=== PATIENT | female | born 1955 | race Caucasian/White ===

== ENCOUNTER 2024-08-21 18:45 | Observation (INO) | payer BC, MEDICARE ==
[~2024-08-21] VITALS: Ht 165.1 cm; Wt 95.8 kg
[~2024-08-21 18:45] MED LIST: CELEBREX 200MG200 MG PO; HCTZ 25MG TAB25 MG PO; NO CURRENT MEDICATIO; NO HOME MEDICATIONS; PRAVACHOL 20MG20 MG PO; STOOL SOFTENER100 M2 PO; ULTRAM 50MG TAB50 MG PO
[2024-08-21 18:59] VITALS: BP 129/73; PULSE 87; TEMP 99.9
[2024-08-21] MEDS ORDERED: PRAVACHOL 40MG40 MG PO (19:16)
[2024-08-21] MEDS ORDERED: TYLENOL 8 HR PO (19:18)
[2024-08-21 20:00] VITALS: BP_SYST 129
[2024-08-21] MEDS ORDERED: LR 1,000 ML IV SCH (20:00)
[2024-08-21] MEDS ORDERED: Ondansetron 4 MG/2 ML VIAL IV PRN (20:00)
[2024-08-21] MEDS ORDERED: HYDROmorphone 0.5 MG/0.5 ML SYRINGE IV PRN (20:00)
[2024-08-21 21:34] VITALS: BP 129/73
--- NOTE | 2024-08-21 23:33 | NUR ---
Patient direct admit to hospital. Arrived to unit with around 1899. Alert and oriented, and able to make needs known. Denies having pain and discomfort. This nurse unable to get IV access. Infectious Waste Technician able to get access to right hand at 2129. Started IV ABX and fluids per orders around 2139. Denies SOB and dyspnea. LS CTA. HRR. BSAx4. Reports diarrhea this morning. Dr. Mcguire in to see patient. Allowed to have clear liquids, NPO after midnight. Patient aware of plan for US in the morning, and surgery most likely in the afternoon. Voices no questions, needs, or concerns at this time. In bed with call light within reach.
[2024-08-22] VITALS (17 sets, daily range): BP systolic 102–133; BP diastolic 41–62; PULSE 19–86; TEMP 97.9–99.1
--- NOTE | 2024-08-22 06:30 | NUR ---
Patient continues on IV fluids and received IV ABX per orders. Given PRN [place] once this shift for pain as requested. Voices no further questions, needs, or concerns at this time. In bed with call light within reach.
[2024-08-22 07:07] LABS: MEAN CELL VOLUME 79 fl (80.0-100.0); MEAN CORPUSCULAR HGB CONC 30 g/dl (33.0-37.0); MEAN PLATELET VOLUME 11.3 fl (7.4-10.4); PLATELET COUNT 307 K/mm3 (130-400); RED BLOOD COUNT 3.21 M/mm3 (4.10-5.30)
[2024-08-22 07:20] LABS: HEMATOCRIT 25.3 % (37.0-47.0); HEMOGLOBIN 7.6 g/dl (12.5-16.0); MEAN CORPUSCULAR HEMOGLOBIN 24 pg (27-31)
[2024-08-22] MEDS ORDERED: NS 1,000 ML IV SCH (08:30)
[2024-08-22 08:34] LABS: ALBUMIN 2.6 g/dL (3.4-4.8); BILIRUBIN,TOTAL 0.4 mg/dL (0.2-1.2); CALCIUM 8.6 mg/dL (8.4-10.2); CREATININE, serum 0.79 mg/dL (0.57-1.11); POTASSIUM 3.1 mEq/L (3.5-4.5); TOTAL PROTEIN 6.6 g/dl (6.2-8.1)
--- NOTE | 2024-08-22 08:58 | NUR ---
Pt. laying in bed. Pt. is A&OX3, assessment complete. IV to rt. hand patent, IV fluids infusing per orders. Pt. denies pain. Pt. reports nausea, gave nausea meds per orders. Pt. denies further needs, call light within reach.
--- NOTE | 2024-08-22 09:29 | NUR ---
Initial visit; Patient and her thanked Yard Foreman for looking in on her prior to her surgical procedure. Patient was receptive to Yard Foreman offering prayer for a successful procedure and rapid and thorough healing.
[2024-08-22 09:52] LABS: ANISOCYTOSIS 1+; EOSINOPHIL 4 % (0-4); LYMPHOCYTE 29 % (20.0-51.0); NEUTROPHILS 64 % (42.0-75.2); PLATELET ESTIMATE NORMAL (NORMAL)
[2024-08-22 09:53] LABS: HYPOCHROMIA 1+
[2024-08-22] MEDS ORDERED: LR 1,000 ML IV SCH (10:00)
--- NOTE | 2024-08-22 10:10 | NUR ---
Wrecking Mechanic met with patient to discuss discharge planning. Patient lives in [place] with her , Дмитрий (ph#[phone]) and sees Dr. Aaron for primary care. Patient gets medications from [facility] and reported no concerns about affording medications. Patient does not use any DME and is independent with ADLS. Patient is covered by [facility] through her 's employer. Patient does not have DPOA-HC and was not interested in completing one at this time. Patient plans to return home at time of discharge. Discharge Plan: Home
[2024-08-22] MEDS ORDERED: Indocyanine Green 12.5 MG in Water For Injection,Sterile 2.5 ML IV ONE (11:00)
[2024-08-22] MEDS ORDERED: *Potassium Replacement Protocol MC SCH (11:45)
[2024-08-22] MEDS ORDERED: Potassium Chloride 100 ML IV SCH (11:45)
[2024-08-22] MEDS ORDERED: Ondansetron 4 MG/2 ML VIAL ONE (13:48)
[2024-08-22] MEDS ORDERED: Rocuronium 50 MG/5 ML Multi-Dose VIAL ONE ×2 (13:48→15:13)
[2024-08-22] MEDS ORDERED: dexAMETHasone 10 MG/ML VIAL ONE (13:48)
[2024-08-22] MEDS ORDERED: fentaNYL 50 MCG/ML 2 ML VIAL ONE (14:32)
[2024-08-22] MEDS ORDERED: ePHEDrine 50 MG/ML VIAL ONE (14:45)
[2024-08-22] MEDS ORDERED: Phenylephrine 10 MG/ML VIAL ONE (14:48)
[2024-08-22] MEDS ORDERED: hydrALAZINE 20 MG/ML 1 ML VIAL IV PRN (15:15)
[2024-08-22] MEDS ORDERED: HYDROmorphone 1 MG/1 ML SYRINGE [PACU/SDC ONLY] IV PRN (15:15)
[2024-08-22] MEDS ORDERED: fentaNYL 50 MCG/ML 1 ML SYRINGE/VIAL [PACU/SDC ONLY] IV PRN (15:15)
[2024-08-22] MEDS ORDERED: Ondansetron 4 MG/2 ML VIAL IV PRN (15:15)
[2024-08-22] MEDS ORDERED: Topical Skin Adhesive 1 EACH (1 ML) TOP ONE (15:25)
[2024-08-22 16:19] LABS: HEMATOCRIT 25.5 % (37.0-47.0); HEMOGLOBIN 7.7 g/dl (12.5-16.0)
[2024-08-22] MEDS ORDERED: Potassium Bicarbonate/Citrate 20 MEQ Effervescent TAB PO SCH (17:45)
--- NOTE | 2024-08-22 17:56 | NUR ---
Pt. to the floor from PACU. Pt. is drowsy but A&OX3. Assessment wnl. Pt. reports pain at a 4 on pain scale and requests pain meds. Will give per orders. Pt. denies further needs.
--- NOTE | 2024-08-22 19:30 | NUR ---
Scheduled meds administered per JAN. Shift assessment complete. Bowel sounds are hypoactive in all quadrants. Pt. denies nausea or passing flatus. x6 glued incisions to abdomen. Incisions are open to air and edges are well approximated. Pt. reports pain is manageable at this time rated 5/10. No complaints or request at this time. Call light in reach.
--- NOTE | 2024-08-22 19:45 | NUR ---
Assisted pt to restroom- pt is voiding clear yellow urine . Pt. ambulating w/ x1 assistance. Gait is weak at this time. Pt. reports pain spiked with ambulation and is requesting analgesia. Pt. now rates pain 04/28. PRN analgesia administered per JAN.
--- NOTE | 2024-08-22 20:30 | NUR ---
Pt. reports pain is unrelieved upon reassessment. Analgesia administered per JAN.
[2024-08-23] VITALS (17 sets, daily range): BP systolic 105–125; BP diastolic 51–74; PULSE 65–81; TEMP 97.6–98.9
--- NOTE | 2024-08-23 03:57 | NUR ---
Pt. c/o of persisting pain following re-asessment. IV analgesia administered per MAR by RN at 2330. Upon third reassessment, pt is resting in bed w/ eyes closed, respirations even and unlabored and VS WNL. Call light in reach.
--- NOTE | 2024-08-23 05:00 | NUR ---
Pt struggled w/ pain management early in the shift. Pain was relieved w/ IV analgesia. Pt rested w/ eyes closed and respirations even & unlabored through the rest of the evening. at bedside and call light in reach. No complaints or requests at this time.
--- NOTE | 2024-08-23 08:34 | NUR ---
PATIENT ALERT AND ORIENTED X4. VSS. PATIENT HERE FOR LAP IVETTE. LAPS X6 AMAURI WITH SKIN GLUE. PATIENT REPORTS PAIN 5/10, REQUESTS PRN PAIN MEDICATION. IV TO RIGHT HAND WITH FLUIDS RUNNING AT 75ML/HOUR. PATIENT TOLERATING BREAKFAST, DENIES PASSING GAS, BUT IS BELCHING. PATIENT IN BED, CALL LIGHT IN REACH.
[2024-08-23 10:28] LABS: BASO % 0.2 % (0.0-2.0); GRAN # 9.6 K/mm3 (1.4-6.5); GRAN % 86.1 % (42.2-75.2); LYMPH # 0.9 K/mm3 (1.2-3.4); LYMPH % 8.4 % (20.0-51.0); MEAN CELL VOLUME 82 fl (80.0-100.0); MEAN CORPUSCULAR HGB CONC 29 g/dl (33.0-37.0); MEAN PLATELET VOLUME 10.4 fl (7.4-10.4); MONO # 0.6 K/mm3 (0.1-0.6); MONO % 4.9 % (1.7-9.3); PLATELET COUNT 361 K/mm3 (130-400); RED BLOOD COUNT 3.07 M/mm3 (4.10-5.30)
[2024-08-23 10:32] LABS: HEMATOCRIT 25.1 % (37.0-47.0); HEMOGLOBIN 7.3 g/dl (12.5-16.0); MEAN CORPUSCULAR HEMOGLOBIN 24 pg (27-31)
[2024-08-23 10:47] LABS: ALBUMIN 2.5 g/dL (3.4-4.8); BILIRUBIN,TOTAL 0.3 mg/dL (0.2-1.2); CALCIUM 8.5 mg/dL (8.4-10.2); CREATININE, serum 0.8 mg/dL (0.57-1.11); POTASSIUM 3.8 mEq/L (3.5-4.5); TOTAL PROTEIN 6.6 g/dl (6.2-8.1)
[2024-08-23] MEDS ORDERED: PROTONIX 40MG T40 MG PO (13:09)
[2024-08-23 13:18] LABS: RETIC # 0.03 M/mm3 (0.02-0.16); RETIC % 0.9 % (0.5-3.52)
[2024-08-23 13:23] LABS: INR 1.3 (0.8-3.0); PROTHROMBIN TIME 14.2 SECONDS (9.7-12.8)
--- NOTE | 2024-08-23 15:07 | NUR ---
ONE UNIT PRBC BEING INFUSED. PATIENT REPORTS PAIN IS TOO UNBEARABLE TO TAKE DEEP BREATHS, RESPIRATORY PLACED PATIENT ON 2LNC. PATIENT ENCOURAGED TO COUGH AND DEEP BREATHE AND USE A PILLOW TO BRACE ABDOMEN.
[2024-08-23 19:26] LABS: HEMATOCRIT 28.4 % (37.0-47.0); HEMOGLOBIN 8.9 g/dl (12.5-16.0)
--- NOTE | 2024-08-23 19:27 | NUR ---
RECEIVED CHANGE OF SHIFT REPORT FROM DAY SHIFT NURSE. PATIENT RESTING IN BED, CALL LIGHT WITHIN REACH. NO NEEDS REPORTED BY PATIENT AT THIS TIME.
[2024-08-23] MEDS ORDERED: Pravastatin 20 MG TAB PO SCH (21:00)
[2024-08-23] MEDS ORDERED: Docusate Sodium 100 MG CAP PO SCH (21:00)
[2024-08-24] VITALS: BP 116/53; PULSE 79; TEMP 98.4
[2024-08-24 01:00] VITALS: BP_SYST 116
--- NOTE | 2024-08-24 03:40 | NUR ---
REQUESTED AND GIVEN PAIN MEDS, SEE MAR
[2024-08-24 04:00] VITALS: BP 99/61; PULSE 74; TEMP 99.4
[2024-08-24 05:00] VITALS: BP_SYST 99
[2024-08-24 06:34] LABS: BASO % 0.3 % (0.0-2.0); EOS # 0.1 K/mm3 (0.0-0.7); EOS % 0.6 % (0.0-4.0); GRAN # 8.4 K/mm3 (1.4-6.5); GRAN % 78.4 % (42.2-75.2); LYMPH # 1.5 K/mm3 (1.2-3.4); MEAN CELL VOLUME 81 fl (80.0-100.0); MEAN CORPUSCULAR HGB CONC 31 g/dl (33.0-37.0); MEAN PLATELET VOLUME 11.5 fl (7.4-10.4); MONO # 0.7 K/mm3 (0.1-0.6); MONO % 6.2 % (1.7-9.3); PLATELET COUNT 335 K/mm3 (130-400)
[2024-08-24 06:41] LABS: HEMATOCRIT 26.6 % (37.0-47.0); HEMOGLOBIN 8.1 g/dl (12.5-16.0); MEAN CORPUSCULAR HEMOGLOBIN 25 pg (27-31)
--- NOTE | 2024-08-24 07:24 | NUR ---
CHANGE OF SHIFT REPORT GIVEN TO DAY SHIFT NURSESHANDRA.
[2024-08-24 07:42] VITALS: BP 129/68; PULSE 74; TEMP 98.5
--- NOTE | 2024-08-24 08:00 | NUR ---
PATIENT ALERT AND ORIENTED X4. VSS. PATIENT HERE FOR LAP IVETTE. LAPS X6 CDI AND AMAURI. PATIENT REPORTS PAIN 6/10, REQUESTS PRN PAIN MEDS. PATIENT TOLERATING PO. PATIENT ENCOURAGED TO AMBULATE HALLS. NO FURTHER NEEDS. CALL LIGHT IN REACH.
[2024-08-24 09:00] VITALS: BP_SYST 129
[2024-08-24 09:01] LABS: ALBUMIN 2.3 g/dL (3.4-4.8); BILIRUBIN,TOTAL 0.8 mg/dL (0.2-1.2); CALCIUM 8.4 mg/dL (8.4-10.2); CREATININE, serum 0.77 mg/dL (0.57-1.11); POTASSIUM 3.3 mEq/L (3.5-4.5); TOTAL PROTEIN 6.1 g/dl (6.2-8.1)
[2024-08-24] MEDS ORDERED: Potassium Bicarbonate/Citrate 20 MEQ Effervescent TAB PO SCH (09:15)
[2024-08-24] MEDS ORDERED: Ferrous Sulfate 325 MG TAB PO SCH (09:32)
[2024-08-24] MEDS ORDERED: B-12 500 MCG PO (09:38)
[2024-08-24] MEDS ORDERED: FOLIC ACID 11 MG/TA1 PO (09:39)
[2024-08-24] MEDS ORDERED: NORCO 325 MG-51 TAB PO (09:43)
[2024-08-24] MEDS ORDERED: FERROUS SU325 MG/TAB PO (09:45)
--- NOTE | 2024-08-24 11:39 | NUR ---
DISCHARGE INSTRUCTIONS PROVIDED. PATIENT EDUCATION GIVEN. IV DC'D. FOLLOW UP APPOINTMENT DISCUSSED. MEDICATIONS REVIEWED. PATIENT DENIES ANY QUESTIONS OR CONCERNS. PATIENT ESCORTED OUT VIA WHEELCHAIR.
[2024-08-27 09:11] LABS: PATHOLOGY DIFF REVIEW OK
[2024-08-29] MEDS ORDERED: PROTONIX 40MG T40 MG PO (13:59)
== END 2024-08-24 11:40 | disposition home or self-care (01) ==
LOC: SURG 18:45
PROVIDERS: Internal Medicine; Surgery; ADMIT Surgery
DX: K80.12 Calculus of gallbladder with acute and chronic cholecystitis without obstruction (principal); K82.A1 Gangrene of gallbladder in cholecystitis; D64.9 Anemia, unspecified; I10 Essential (primary) hypertension; Z79.899 Other long term (current) drug therapy
CPT/HCPCS: A9284; G0378; G0379; J0690; J1100; J1171; J2371; J2405; J2543; J2704; J3010; J3480; J7030; J7120; P9016

== ENCOUNTER 2024-08-24 23:22 | Inpatient (IN) | payer BC, MEDICARE ==
[~2024-08-24] VITALS: Ht 165.1 cm; Wt 102.2 kg
[~2024-08-24 23:22] MED LIST changes: +B-12 500 MCG PO; +FERROUS SU325 MG/TAB PO; +FOLIC ACID 11 MG/TA1 PO; +NORCO 325 MG-51 TAB PO; +PRAVACHOL 40MG40 MG PO; +PROTONIX 40MG T40 MG PO; +TYLENOL 8 HR PO
[2024-08-25] VITALS (11 sets, daily range): BP systolic 101–161; BP diastolic 63–79; PULSE 66–94; TEMP 97.8–100.2
--- NOTE | 2024-08-25 00:40 | NUR ---
Patient arrived to room 353 via stretcher from [facility].
[2024-08-25] MEDS ORDERED: Acetaminophen 325 MG TAB PO PRN (02:00)
[2024-08-25] MEDS ORDERED: Ondansetron 4 MG/2 ML VIAL IV PRN ×2 (02:00→15:00)
--- NOTE | 2024-08-25 02:42 | NUR ---
Critical troponin of 0.281 called to MARIBEL Agosto. No new orders received.
[2024-08-25 02:53] LABS: CALCIUM 7.9 mg/dL (8.4-10.2); CREATININE, serum 0.78 mg/dL (0.57-1.11)
[2024-08-25] MEDS ORDERED: traMADol 50 MG TAB PO PRN (04:45)
--- NOTE | 2024-08-25 05:56 | NUR ---
Patient rested off an on this shift. VS remained stable. O2 sat 92-94% on 2L/NC. Rating pain to abdomen 3/10-denies need for intervention. TELE reporting SR. Left hand/Right AC INT flushes without difficulty-no s/s of infiltration. Denie scurrent needs. Call light in reach. Will monitor.
--- NOTE | 2024-08-25 07:53 | NUR ---
PATIENT CALLED THIS RN AND COMPLAINED OF FEELING SOA. PATIENT O2 SAT 88% ON 2L O2 VIA NC. PATIENT ALSO C/O PAIN BETWEEN HER SHOULDER BLADES. THIS RN ORDERED EKG, NOTIFIED RT, AND NOTIFIED DR MUNGUIA. SEE NEW ORDERS.
[2024-08-25] MEDS ORDERED: Folic Acid 1 MG TAB PO SCH (09:00)
[2024-08-25] MEDS ORDERED: Pantoprazole 40 MG in NS 10 ML IV SCH (09:00)
[2024-08-25] MEDS ORDERED: Ferrous Sulfate 325 MG TAB PO SCH (09:00)
[2024-08-25] MEDS ORDERED: Cyanocobalamin (Vit B-12) 1,000 MCG TAB PO SCH (09:00)
--- NOTE | 2024-08-25 09:14 | NUR ---
cinder worker met with pt and her , Дмитрий [phone] to discuss discharge planning. She reports to live with her in [place]. She sees Dr. Sánchez for PCP needs and obtains medications from [facility] with no difficulties. Pt verified her insurance as BCBS and Medicare Part A insurance. She is independent with ADLS and uses no DME. She is on oxygen currently. Pt does not have a DPOA-HC and is agreeable to her being NOK. Pt is marked independent in room with no mobility concerns. Discharge Plan: home
[2024-08-25] MEDS ORDERED: Albuterol/Ipratropium 3 MG-0.5 MG/3 ML Neb Soln IH PRN (12:00)
[2024-08-25] MEDS ORDERED: Albuterol/Ipratropium 3 MG-0.5 MG/3 ML Neb Soln IH SCH (13:00)
[2024-08-25 13:01] LABS: HEMATOCRIT 30.9 % (37.0-47.0); HEMOGLOBIN 9.3 g/dl (12.5-16.0)
[2024-08-25] MEDS ORDERED: Bisacodyl 5 MG TAB PO SCH (17:00)
[2024-08-25] MEDS ORDERED: PEG3350/Sod Sulf,Bicarb,Cl/KCl Oral Soln 4,000 ML Bottle PO SCH (17:30)
[2024-08-25 20:13] LABS: HEMATOCRIT 27.8 % (37.0-47.0); HEMOGLOBIN 8.5 g/dl (12.5-16.0)
--- NOTE | 2024-08-25 20:40 | NUR ---
PATIENT RETURNING TO BED AFTER VISITING RESTROOM WITH PCT. REPORTS HER STOOLS ARE LOOSE SINCE TAKING THE DULCOLAX TABLETS. CALL LIGHT WITHIN REACH. BED LOCKED AND IN LOW POSITION. BEDSIDE COMMODE PLACED AT BEDSIDE PER PATIENT REQUEST
[2024-08-25] MEDS ORDERED: Pravastatin 20 MG TAB PO SCH (21:00)
[2024-08-26] VITALS (11 sets, daily range): BP systolic 112–144; BP diastolic 62–78; PULSE 66–89; TEMP 97.8–100.3
--- NOTE | 2024-08-26 00:35 | NUR ---
PATIENT STRUGGLING TO DRINK HER BOWEL PREP. STATED SHE DOES NOT WANT TO FINISH IT AND WANTS TO GO TO SLEEP. CALLED CARD HAND GI SURGEON DR. ESPINO TO INFORM OF PATIENT'S STRUGGLE AND REFUSAL.
--- NOTE | 2024-08-26 05:55 | NUR ---
AT THIS TIME PATIENT HAS DRANK APPROXIMATELY HALF OF HER GOLYTELY BOWEL PREP. STOOLS ARE CLEAR YELLOW LIQUID.
[2024-08-26 06:28] LABS: BASO % 0.3 % (0.0-2.0); EOS # 0.1 K/mm3 (0.0-0.7); EOS % 0.7 % (0.0-4.0); GRAN # 8.5 K/mm3 (1.4-6.5); GRAN % 76.7 % (42.2-75.2); LYMPH # 1.8 K/mm3 (1.2-3.4); LYMPH % 16.1 % (20.0-51.0); MEAN CELL VOLUME 80 fl (80.0-100.0); MEAN CORPUSCULAR HGB CONC 30 g/dl (33.0-37.0); MEAN PLATELET VOLUME 11.3 fl (7.4-10.4); MONO # 0.6 K/mm3 (0.1-0.6); MONO % 5.7 % (1.7-9.3); PLATELET COUNT 394 K/mm3 (130-400); RED BLOOD COUNT 3.37 M/mm3 (4.10-5.30); REDCELL DISTRIBUTION WIDTH-CV 16.9 % (11.5-14.5)
[2024-08-26 06:36] LABS: HEMATOCRIT 27.1 % (37.0-47.0); HEMOGLOBIN 8.2 g/dl (12.5-16.0); MEAN CORPUSCULAR HEMOGLOBIN 24 pg (27-31)
[2024-08-26 06:48] LABS: CREATININE, serum 0.74 mg/dL (0.57-1.11); MAGNESIUM 2.1 mg/dL (1.6-2.6); POTASSIUM 3.2 mEq/L (3.5-4.5)
--- NOTE | 2024-08-26 08:08 | NUR ---
MACEY CALLED AND UPDATED ON PATIENT AM LABS. INFORMED ERA PATIENTS POTASSIUM LEVEL THIS AM 3.2, RN WILL BEGIN REPLACEMENT VIA IV IF PATIENT TOLERATES. PER ENDO OR TIME CURRENTLY 1230.
--- NOTE | 2024-08-26 08:16 | NUR ---
SPOKE WITH DR ESPINO, HOLDING LOVENOX UNTIL AFTER PATIENT EGD/COLON THIS AFTERNOON
[2024-08-26] MEDS ORDERED: *Potassium Replacement Protocol MC SCH ×2 (08:30→09:15)
[2024-08-26] MEDS ORDERED: Potassium Chloride 100 ML IV SCH (09:15)
--- NOTE | 2024-08-26 09:36 | NUR ---
SN educated Pt. how to use an IS. IS helps prevent infection, expland lungs, and help with deep breaths. Pt.and SN set a goal to use IS for today with using IS Q2 5x to reach 1,000. Pt. demonstrated correct technique of IS reading 575. With the Goal to increase every hour. Rai DICKINSON
--- NOTE | 2024-08-26 09:51 | NUR ---
Initial visit; Patient is not feeling well this morning. She states she is due for a Colonoscopy this afternoon to hopefully discern what is going on with her health and see if they can come up with a diagnosis as she is only being treated for what is known at this time. Her is also present for support.
[2024-08-26] MEDS ORDERED: LR 1,000 ML IV SCH (12:00)
[2024-08-26 12:44] LABS: CALCIUM 8.5 mg/dL (8.4-10.2); CREATININE, serum 0.66 mg/dL (0.57-1.11); POTASSIUM 3.7 mEq/L (3.5-4.5)
--- NOTE | 2024-08-26 13:20 | NUR ---
PATIENT REMAINED 93% ON ROOM AIR.
--- NOTE | 2024-08-26 13:35 | NUR ---
PATIENT BEING TAKEN TO PRE OP, BY ENDO NURSES. PATIENT DENIES ANY NEEDS OR COMPLAINTS AT THIS TIME, CONSENT FOR PROCEDURE SIGNED AND ON CHART. PATIENT LEFT AWAKE AND ALERT IN STABLE CONDITION
[2024-08-26] MEDS ORDERED: Lidocaine PF 2% (20 MG/ML) 5 ML VIAL ONE (13:47)
--- NOTE | 2024-08-26 15:08 | NUR ---
PATIENT ARRIVED AWAKE AND ALERT FROM PACU, PATIENT DENIES ANY NEEDS OR COMPLAINTS AT THIS TIME. POST OP VITALS INITATED, VSS, PATIENT AT BEDSIDE.
--- NOTE | 2024-08-26 17:30 | NUR ---
PATIENT ASLEEP, RESTING IN BED. CALL LIGHT WITHIN REACH. PATIENT DOES NOT WANT DINNER AT THIS TIME. SHE TOLD THIS RN SEH JUST WANTS TO REST BECAUSE SHE IS TIRED.
[2024-08-26] MEDS ORDERED: Warfarin 5 MG TAB PO SCH (21:00)
[2024-08-26] MEDS ORDERED: Docusate Sodium 100 MG CAP PO SCH (21:00)
--- NOTE | 2024-08-26 21:20 | NUR ---
Patient resting in bed. Rates pain at 4/10, prn pain meds given. Assissted patient to bedside commode and back to bed. Needs met. Assessment complete. IV in left hand and right AC flush easliy without complications. Lap sites to abd are CDI. Call light and personal items in reach. Bed in low position and bed alarm on.
[2024-08-27] VITALS (13 sets, daily range): BP systolic 98–136; BP diastolic 60–76; PULSE 74–93; TEMP 98–99.8
[2024-08-27 06:52] LABS: BASO % 0.4 % (0.0-2.0); EOS # 0.1 K/mm3 (0.0-0.7); EOS % 1.5 % (0.0-4.0); GRAN % 70.4 % (42.2-75.2); LYMPH # 1.6 K/mm3 (1.2-3.4); MEAN CELL VOLUME 82 fl (80.0-100.0); MEAN CORPUSCULAR HGB CONC 30 g/dl (33.0-37.0); MEAN PLATELET VOLUME 11.2 fl (7.4-10.4); MONO # 0.7 K/mm3 (0.1-0.6); MONO % 8.3 % (1.7-9.3); PLATELET COUNT 408 K/mm3 (130-400); RED BLOOD COUNT 3.13 M/mm3 (4.10-5.30); REDCELL DISTRIBUTION WIDTH-CV 17.4 % (11.5-14.5)
[2024-08-27 06:58] LABS: HEMATOCRIT 25.6 % (37.0-47.0); HEMOGLOBIN 7.6 g/dl (12.5-16.0); MEAN CORPUSCULAR HEMOGLOBIN 24 pg (27-31)
[2024-08-27 07:03] LABS: CALCIUM 8.5 mg/dL (8.4-10.2); CREATININE, serum 0.69 mg/dL (0.57-1.11); POTASSIUM 3.7 mEq/L (3.5-4.5)
[2024-08-27 07:07] LABS: INR 1.6 (0.8-3.0); PROTHROMBIN TIME 16.9 SECONDS (9.7-12.8)
--- NOTE | 2024-08-27 08:00 | NUR ---
Pt. is A&OX3, assessment complete. INT to rt. ac and lt. hand patent. Pt. reports pain to the abd at a 3 on pain scale, will give med per orderr. Pt. denies further needs, call light within reach.
--- NOTE | 2024-08-27 10:12 | NUR ---
Follow-up visit; Patient appears to be doing better today and agrees to do her part when Husbandry Technician does hers and continues to pray. Husbandry Technician got a smile when she asked for this agreement. Edna's was also present.
[2024-08-27] MEDS ORDERED: Ferrous Sulfate 325 MG TAB PO SCH (12:00)
[2024-08-27] MEDS ORDERED: levoFLOXacin 750 MG TAB PO SCH (21:00)
--- NOTE | 2024-08-27 21:50 | NUR ---
Patient resting in bed. Rates pain at 5/10, prn pain meds given. Needs met. Assessment complete. IV in left hand is leaking and no longer good, IV removed without complications. IV in right AC flushes easily without complications. Call light and personal items in reach. Bed in low position and bed alarm on.
[2024-08-28] VITALS (7 sets, daily range): BP systolic 124–133; BP diastolic 75–77; PULSE 66–76; TEMP 98.1–99
[2024-08-28 06:15] LABS: BASO % 0.4 % (0.0-2.0); EOS # 0.2 K/mm3 (0.0-0.7); GRAN # 4.9 K/mm3 (1.4-6.5); GRAN % 65.9 % (42.2-75.2); LYMPH # 1.6 K/mm3 (1.2-3.4); LYMPH % 22.1 % (20.0-51.0); MEAN CELL VOLUME 81 fl (80.0-100.0); MEAN CORPUSCULAR HGB CONC 30 g/dl (33.0-37.0); MONO # 0.7 K/mm3 (0.1-0.6); MONO % 9.1 % (1.7-9.3); PLATELET COUNT 415 K/mm3 (130-400); REDCELL DISTRIBUTION WIDTH-CV 17.6 % (11.5-14.5)
[2024-08-28 06:21] LABS: HEMOGLOBIN 7.5 g/dl (12.5-16.0); MEAN CORPUSCULAR HEMOGLOBIN 24 pg (27-31)
[2024-08-28 06:22] LABS: INR 2.9 (0.8-3.0); PROTHROMBIN TIME 30.8 SECONDS (9.7-12.8)
[2024-08-28 06:33] LABS: CALCIUM 8.5 mg/dL (8.4-10.2); CREATININE, serum 0.68 mg/dL (0.57-1.11); POTASSIUM 3.7 mEq/L (3.5-4.5)
[2024-08-28] MEDS ORDERED: Ascorbic Acid 500 MG TAB PO SCH (09:00)
[2024-08-28] MEDS ORDERED: COUMADIN 1MG1 MG/TAB PO (10:13)
[2024-08-28] MEDS ORDERED: AMOXICILLIN 8751 TAB PO (10:14)
--- NOTE | 2024-08-28 14:32 | NUR ---
Pre School Manager met with patient and her , Дмитрий to present and review IM. Patient verbalized understanding and provided signature. SW placed form in chart and provided copy to patient. SW was at bedside with RT and patient qualifies for home oxygen. Patient selected [facility]. DELFIN faxed referral and order to [facility], which will be delivered up to the room. Discharge Plan: Home with oxygen
--- NOTE | 2024-08-28 15:30 | NUR ---
PATIENT GIVEN DISCHARGE INSTRUCITONS AND EDUCATION. IV AND TELE REMOVED. PATIENT GIVEN DISCHARGE INSTRUCTIONS AND EDUCATION. PATIENT TAKEN VIA WHEELCHIAR WITH HER NEW HOME O2. PATIENT LEFT AWAKE AND ALERT, IN THE CARE OF HER .
[2024-08-28] MEDS ORDERED: Warfarin 1 MG TAB PO SCH (21:00)
[2024-08-29] MEDS ORDERED: PROTONIX 40MG T40 MG PO (13:59)
== END 2024-08-28 16:13 | disposition home or self-care (01) | DRG 871 ==
LOC: MEDICAL 23:22
PROVIDERS: Internal Medicine; Internal Medicine Gastroenterology; Physician Assistant; ADMIT Hospitalist
PROC: 0DB98ZX Excision of Duodenum, Via Natural or Artificial Opening Endoscopic, Diagnostic (ICD-10-PCS; principal; 2024-08-26 12:30)
PROC: 0DB68ZX Excision of Stomach, Via Natural or Artificial Opening Endoscopic, Diagnostic (ICD-10-PCS; 2024-08-26 12:30)
DX: A41.9 Sepsis, unspecified organism (principal); I21.4 Non-ST elevation (NSTEMI) myocardial infarction; I26.99 Other pulmonary embolism without acute cor pulmonale; E78.5 Hyperlipidemia, unspecified; I10 Essential (primary) hypertension; Z96.653 Presence of artificial knee joint, bilateral; M19.91 Primary osteoarthritis, unspecified site; N62 Hypertrophy of breast; E87.6 Hypokalemia; D64.9 Anemia, unspecified; K82.8 Other specified diseases of gallbladder; Z90.49 Acquired absence of other specified parts of digestive tract; Z87.891 Personal history of nicotine dependence
CPT/HCPCS: A9284; J1650; J1956; J2405; J2704; J3480; J7120